=== PATIENT | female | born 1940 | race Caucasian/White ===

== ENCOUNTER 2017-11-13 05:51 | Observation (INO) | payer MEDICARE, OTHER ==
[~2017-11-13] VITALS: Ht 168.9 cm; Wt 87.3 kg
[~2017-11-13 05:51] MED LIST: MULT-516 PO; NALTREXONE PO; THYR32.58 PO
[2017-11-13] MEDS ORDERED: LACTATED RINGERS 1,000 ML IV SCH (06:07)
[2017-11-13 06:24] VITALS: BP 178/83
[2017-11-13] MEDS ORDERED: GABAPENTIN 300 MG CAPSULE PO ONE (06:30)
[2017-11-13] MEDS ORDERED: ACETAMINOPHEN 500 MG TABLET PO ONE (06:30)
[2017-11-13] MEDS ORDERED: MIDAZOLAM 1 MG/ML, 2ML ONE (06:39)
[2017-11-13] MEDS ORDERED: FENTANYL PF 250 MCG/5ML ONE (06:39)
[2017-11-13] MEDS ORDERED: PROPOFOL 10 MG/ML, 20ML ONE (06:43)
[2017-11-13] MEDS ORDERED: ROCURONIUM 10MG/ML,5ML ONE (06:44)
[2017-11-13] MEDS ORDERED: SODIUM CHLORIDE 0.9% PF 10ML ONE (06:45)
[2017-11-13] MEDS ORDERED: ONDANSETRON 2MG/ML, 2ML ONE (06:45)
[2017-11-13] MEDS ORDERED: DEXAMETHASONE 4 MG/ML, 1ML ONE ×2 (06:45)
[2017-11-13] MEDS ORDERED: CEFAZOLIN 1,000 MG ONE ×2 (06:45)
[2017-11-13] MEDS ORDERED: NEOSTIGMINE 1 MG/ML, 10ML ONE (06:48)
[2017-11-13] MEDS ORDERED: GLYCOPYRROLATE 0.4 MG/2 ML, 2ML ONE (06:49)
[2017-11-13] MEDS ORDERED: KETOROLAC 60 MG/2 ML ONE (06:52)
[2017-11-13] MEDS ORDERED: TRANEXAMIC ACID 100 MG/ML, 10ML ONE ×4 (06:52)
[2017-11-13] MEDS ORDERED: EPINEPHRINE 1 MG/ML, 1ML ONE (06:53)
[2017-11-13] MEDS ORDERED: ROPIvacaine/PF 0.2%, 20 ML ONE (06:53)
[2017-11-13] MEDS ORDERED: hydrALAzine 20 MG/ML, 1ML IV PRN (07:00)
[2017-11-13] MEDS ORDERED: ONDANSETRON 4 MG TABLET PO PRN (07:00)
[2017-11-13] MEDS ORDERED: LABETALOL 5MG/ML, 20ML IV PRN (07:00)
[2017-11-13] MEDS ORDERED: ALUMINUM/MAG/SIMETHICONE 30 ML UDC PO PRN (07:00)
[2017-11-13] MEDS ORDERED: PROMETHAZINE 12.5 MG SUPP PR PRN ×2 (07:00)
[2017-11-13] MEDS ORDERED: ONDANSETRON 2MG/ML, 2ML IV PRN ×2 (07:00)
[2017-11-13] MEDS ORDERED: MEPERIDINE/PF 25MG/0.5ML IVPush PRN (07:00)
[2017-11-13] MEDS ORDERED: ONDANSETRON ODT 8 MG PO PRN (07:00)
[2017-11-13] MEDS ORDERED: MAGNESIUM HYDROXIDE 8%, 30ML UDC PO PRN (07:00)
[2017-11-13] MEDS ORDERED: HYDROmorphone 1 MG/ML, 1ML IV PRN (07:00)
[2017-11-13] MEDS ORDERED: MORPHINE SULFATE 4 MG/ML, 1ML IVPush PRN (07:00)
[2017-11-13] MEDS ORDERED: PROMETHAZINE 25 MG/ML, 1ML IV PRN (07:00)
[2017-11-13] MEDS ORDERED: DIPHENHYDRAMINE 50 MG CAPSULE PO PRN (07:00)
[2017-11-13] MEDS ORDERED: PROMETHAZINE 25 MG SUPP PR PRN (07:00)
[2017-11-13] MEDS ORDERED: SENNA/DOCUSATE TABLET PO PRN (07:00)
[2017-11-13] MEDS ORDERED: PROMETHAZINE 25 MG/ML, 1ML IM PRN ×3 (07:00)
[2017-11-13] MEDS ORDERED: OXYcodone 5 MG/5 ML ORAL.SOL UDC PO PRN (07:00)
[2017-11-13] MEDS ORDERED: TRANEXAMIC ACID 1,000 MG in SODIUM CHLORIDE 0.9% 100 ML IVPB ONE (08:30)
[2017-11-13] MEDS ORDERED: HYDROmorphone 2 MG/ML, 1ML ONE ×2 (08:47→09:39)
[2017-11-13] MEDS ORDERED: FENTANYL PF 100 MCG/2ML ONE (08:47)
[2017-11-13] MEDS ORDERED: OXYcodone 5 MG/5 ML ORAL.SOL UDC ONE (08:47)
[2017-11-13] MEDS: FENTANYL PF 100 MCG/2ML IV PRN ×4 (08:52→09:35)
[2017-11-13] MEDS: HYDROmorphone 1 MG/ML, 1ML IV PRN ×8 (08:57→10:05)
[2017-11-13] MEDS: TAMSULOSIN 0.4 MG CAP.ER.24H PO SCH (09:00)
[2017-11-13] MEDS: DOCUSATE 100 MG CAPSULE PO SCH ×2 (09:00→20:23)
[2017-11-13] MEDS: D5%-0.45NACL+KCL 20MEQ 1,000 ML IV SCH ×2 (12:49→22:30)
[2017-11-13 12:55] VITALS: BP 106/49
[2017-11-13] MEDS: CEFAZOLIN PMX 1GM/50ML 50 ML IVPB SCH ×2 (14:54→23:22)
[2017-11-13] MEDS: OXYcodone IR 5MG TABLET PO PRN ×3 (16:33→20:52)
[2017-11-13] MEDS: ASPIRIN 81 MG TABLET EC PO SCH (17:05)
[2017-11-13 20:04] VITALS: BP 108/51
[2017-11-13] MEDS: ACETAMINOPHEN 650 MG/20.3 ML UDC PO PRN (20:52)
[2017-11-13 23:12] VITALS: BP 94/55
[2017-11-14] MEDS: OXYcodone IR 5MG TABLET PO PRN ×4 (01:42→09:10)
[2017-11-14] MEDS: ACETAMINOPHEN 650 MG/20.3 ML UDC PO PRN ×2 (01:42→05:43)
[2017-11-14 02:59] VITALS: BP 106/53
[2017-11-14] MEDS: ASPIRIN 81 MG TABLET EC PO SCH (05:43)
[2017-11-14] MEDS ORDERED: DEXAMETHASONE 4 MG/ML, 1ML IVPush SCH (06:00)
[2017-11-14] MEDS ORDERED: KETOROLAC 30 MG/1 ML IV SCH (07:00)
[2017-11-14 07:31] VITALS: BP 108/65
[2017-11-14] MEDS ORDERED: ASPI-515 PO (09:05)
[2017-11-14] MEDS ORDERED: ONDA4TAB10 PO (09:06)
[2017-11-14] MEDS ORDERED: DOCU-131 PO (09:07)
[2017-11-14] MEDS ORDERED: CELE200C PO (09:08)
[2017-11-14] MEDS ORDERED: TRAM50TA2 PO (09:09)
[2017-11-14] MEDS: DOCUSATE 100 MG CAPSULE PO SCH (09:10)
[2017-11-14] MEDS ORDERED: OXYC5TAB3 PO (09:11)
[2017-11-14] MEDS: TAMSULOSIN 0.4 MG CAP.ER.24H PO SCH (09:11)
== END 2017-11-14 13:00 | disposition home or self-care (01) ==
LOC: OUT 05:51 → ORIP 06:58 → 4NOR 10:35 → DCLOUNGE 11-14 12:47
PROVIDERS: ADMIT Orthopaedic Surgery; ATTEND Orthopaedic Surgery
DX: M17.12 Unilateral primary osteoarthritis, left knee (principal); Z79.899 Other long term (current) drug therapy
CPT/HCPCS: 27447; 36415; 73560; 85014; 85018; 96365; 96366; 96375; 97110; 97162; C1713; C1776; G0378; G8978; G8979; G8980; J0171; J0690; J1100; J1170; J1885; J2250; J2405; J2704; J2710; J2795; J3010; J3480; J7120